=== PATIENT | female | born 1970 | race Caucasian/White ===

== ENCOUNTER 2018-08-16 19:48 | Emergency (ER) | payer SELFPAY ==
[~2018-08-16] VITALS: Ht 170.2 cm; Wt 57.2 kg
[2018-08-16] MEDS: IV NORMAL SALINE 1000ML BAG 1,000 ML IV ONE (20:17)
[2018-08-16] MEDS: ONDANSETRON PF 4 MG/2 ML VIAL. IV ONE (20:18)
[2018-08-16] MEDS: fentaNYL PF VIAL 100 MCG/2 ML VIAL IV ONE ×2 (20:18→21:39)
[2018-08-16] MEDS: KETAMINE HCL IN NACL, ISO-OSM 50 MG/5 ML SYRINGE IV ONE (20:21)
--- NOTE | 2018-08-16 20:31 | PHYS DOC ---
MODERATE SEDATION ASSESSMENT RISKS/ALTERNATIVES Risks/Alternatives Risks and alternatives of this type of sedation and procedure discussed with: RISK/ALTERNATIVES: Patient H & P ON CHART H & P H & P on chart and reviewed for co-morbid conditions and appropriate labs. H&P ON CHART: Yes STATUS PREG STATUS ASSESSED: Yes MEDS/ALLERGIES REVIEWED Meds/Allergies Reviewed Medications and Allergies including time and route of recently administered narcotics and sedatives. MEDS/ALLERGIES REVIEWED: Yes ASA RATING ASA RATING: II AIRWAY ASSESSMENT Airway Assessment Airway patency, oral function limitations, presence of caps, crowns, dentures, partials, and ability to extend neck assessed. AIRWAY ASSESSMENT: Yes MALLAMPATI SCORE MALLAMPATI SCORE: I PRE-SEDATION ASSESSMENT PRE-SEDATION ASSESSMENT: Yes OMID HERNÁNDEZ MD Aug 16, 2018 20:31
--- NOTE | 2018-08-16 20:32 | PHYS DOC ---
Adult General Chief Complaint Chief Complaint: WRIST PAIN HPI HPI Patient is a 48 year ol female brought in by after a 5 foot fall off a ladder. She landed directly on her left wrist no other injury denies any head injury or neck pain no chest pain no abdominal pain pain is severe left wrist nonradiating has not tried anything for relief Patient is right-handed she denies previous past medical history she does drink alcohol denies drugs d Review of Systems Review of Systems Constitutional: Denies fever or chills [] Musculoskeletal: Denies back pain or joint pain [] Integument: Denies rash or skin lesions [] All other systems were reviewed and found to be within normal limits, except as documented in this note. Current Medications Current Medications Current Medications Medications (Trade) Dose Ordered Sig/John Start Time Stop Time Status Last Admin Dose Admin Acetaminophen/ Hydrocodone Bitart (Lortab 5/325) 2 tab 1X ONCE 08/16/18 23:30 08/16/18 23:30 DC 08/16/18 23:00 2 TAB Fentanyl Citrate (Fentanyl 2ml Vial) 50 mcg 1X ONCE 08/16/18 22:15 08/16/18 22:16 DC 08/16/18 21:39 50 MCG Hydromorphone HCl (Dilaudid) 1 mg 1X ONCE 08/16/18 20:15 08/16/18 20:16 DC 08/16/18 20:39 1 MG Ketamine HCl (Ketamine) 20 mg 1X ONCE 08/16/18 20:00 08/16/18 20:05 DC 08/16/18 20:21 20 MG Lidocaine HCl 20 ml 1X ONCE 08/16/18 20:00 08/16/18 20:01 DC 08/16/18 21:39 20 ML Ondansetron HCl (Zofran) 4 mg 1X ONCE 08/16/18 20:00 08/16/18 20:05 DC 08/16/18 20:18 4 MG Propofol (Diprivan) 200 mg 1X ONCE 08/16/18 20:30 08/16/18 20:45 DC 08/16/18 21:38 200 MG Sodium Chloride 1,000 ml @ 1,000 mls/hr 1X ONCE 08/16/18 20:00 08/16/18 20:59 DC 08/16/18 20:17 1,000 MLS/HR Allergies Allergies Allergies Coded Allergies Type Severity Reaction Last Updated Verified No Known Drug Allergies 08/16/18 No Physical Exam Physical Exam Constitutional: Well developed, well nourished, no acute distress, non-toxic appearance. [] HENT: Normocephalic, atraumatic, bilateral external ears normal, oropharynx moist, no oral exudates, nose normal. [] Eyes: PERRLA, EOMI, conjunctiva normal, no discharge. [] Neck: Normal range of motion, no tenderness, supple, no stridor. [] Cardiovascular:Heart rate regular rhythm, no murmur [] Lungs & Thorax: Bilateral breath sounds clear to auscultation [] Abdomen: Bowel sounds normal, soft, no tenderness, no masses, no pulsatile masses. [] Skin: Warm, dry, no erythema, no rash. [] Back: No tenderness, no CVA tenderness. [] Extremities: Left wrist deformed radial pulses present sensation is intact distally Neurologic: Alert and oriented X 3, normal motor function, normal sensory function, no focal deficits noted. [] Psychologic: Very anxious overall. Current Patient Data Vital Signs Vital Signs Date Time Temp Pulse Resp B/P (MAP) Pulse Ox O2 Delivery O2 Flow Rate FiO2 08/16/18 22:30 77 16 133/84 (100) 100 Room Air 08/16/18 21:36 98.2 2.0 98.0 2.0 EKG EKG [] Radiology/Procedures Radiology/Procedures []Just after my read negative acute Impressions: Wrist x-ray #1 significantly displaced and shortened distal radius fracture. Wrist x-ray #2 actually fairly improved alignment still mildly displaced but better Course & Med Decision Making Course & Med Decision Making Pertinent Labs and Imaging studies reviewed. (See chart for details) []Discussed with Dr. victoria who agrees with emergency room reduction followed by outpatient follow-up in his clinic he prefers several days of decreased swelling etc. prior to operative evaluation due to better healing etc. Conscious sedation note: Informed consent was obtained timeout was performed total sedation time was 9 minutes given a total of 90 mg of propofol we gave 70 mg of propofol followed by another small 20 mg bolus. Patient had transient apnea approximately 20-30 seconds we bagged her a few times only and she came right out of it. Patient was observed very closely was on nasal cannula oxygenation bus monitor as well as end-tidal CO2 throughout. Closed reduction note: Informed consent was obtained to confirm the side with the patient. After the administration of propofol as well as a hematoma block hematoma block was 2% lidocaine plain 8 mL's under sterile conditions following those 2 pre-medications I performed a usual closed reduction with manual traction we placed a sugar tong splint I was there for this. I actually checked the splint again after she woke up she said it was a little tight I readjusted that a small amount and that helped a lot. He was in good position. Patient will be discharged to follow-up with orthopedics in a timely fashion pain control was provided she felt much better after the above treatment Dragon Disclaimer Dragon Disclaimer This electronic medical record was generated, in whole or in part, using a voice recognition dictation system. Departure Departure Impression: Primary Impression: Distal radius fracture Disposition: 01 HOME, SELF-CARE Condition: IMPROVED Scripts Ondansetron Hcl (ZOFRAN) 4 Mg Tablet 4 MG PO PRN TID PRN for NAUSEA/VOMITING, #15 nausea/vomiting Prov: OMID HERNÁNDEZ MD 08/16/18 Oxycodone/Apap 5-325 (PERCOCET 5-325 MG TABLET ) 1 Each Tablet 1-2 EACH PO PRN TID PRN for PAIN, #25 TAB pain Prov: OMID HERNÁNDEZ MD 08/16/18 OMID HERNÁNDEZ MD Aug 16, 2018 20:32
[2018-08-16] MEDS ORDERED: OXYC1TAB15 PO (20:33)
[2018-08-16] MEDS ORDERED: ONDA4TAB7 PO (20:33)
[2018-08-16] MEDS: HYDROmorphone 2 MG/ML VIAL IV ONE (20:39)
[2018-08-16 21:36] VITALS: BP 165/88
[2018-08-16] MEDS: PROPOFOL 10 MG/ML (20ML) VIAL. IV ONE (21:38)
[2018-08-16] MEDS: LIDOCAINE 2% 20 ML VIAL. IJ ONE (21:39)
[2018-08-16 22:30] VITALS: BP 133/84
[2018-08-16] MEDS: HYDROcodone/APAP 5/325MG 1 TAB TABLET PO ONE (23:00)
--- NOTE | 2018-08-17 03:40 | RAD ---
Chest radiograph 08/16/2018 7:58 PM INDICATION: Trauma COMPARISON: None available TECHNIQUE: Portable frontal semi-upright view of the chest is provided. FINDINGS: The cardiomediastinal silhouette is within normal limits. There are no pleural effusions. There is no pulmonary vascular congestion. There is no pneumothorax. The lungs are clear. No significant osseous abnormality is identified. Bilateral breast prosthesis noted. IMPRESSION: No acute cardiopulmonary process. Electronically signed by: Meghann Cervantes MD (08/17/2018 3:37 AM) [facility]
--- NOTE | 2018-08-17 05:52 | RAD ---
WRIST 3V LEFT 08/16/2018 7:50 PM INDICATION: Trauma COMPARISON: None available. TECHNIQUE: 3 views of the left wrist are provided. Findings/ impression: 1. Comminuted fractures involving the distal radial metadiaphysis with one shaft width displacement, intra-articular extension and apex volar angulation. 2. Scaphoid is intact. There is no perilunate dislocation. 3. There may be a nondisplaced ulnar styloid process fracture. There is possible disruption of the distal radioulnar joint. Electronically signed by: Meghann Cervantes MD (08/17/2018 5:49 AM) [facility]
--- NOTE | 2018-08-17 05:53 | RAD ---
WRIST 3V LEFT 08/16/2018 9:48 PM INDICATION: Postreduction COMPARISON: Left wrist radiograph August 16, 2018 TECHNIQUE: 3 views the left wrist are provided. Findings/ impression: Interval closed reduction with improved alignment of fracture fragments involving the distal radius. Radiocarpal joint extension of fracture lines are noted. Electronically signed by: Meghann Cervantes MD (08/17/2018 5:50 AM) [facility]
== END 2018-08-16 23:01 | disposition home or self-care (01) ==
LOC: ER 19:48
DX: S52.572A Other intraarticular fracture of lower end of left radius, initial encounter for closed fracture (principal); W11.XXXA Fall on and from ladder, initial encounter; Y93.89 Activity, other specified; Y92.89 Other specified places as the place of occurrence of the external cause; Y99.8 Other external cause status
CPT/HCPCS: 25605; 71045; 73110; 96374; 99285; J1170; J2001; J2405; J2704; J3010; J7030

== ENCOUNTER 2021-07-09 07:19 | Emergency (ER) | payer OTHER ==
[~2021-07-09] VITALS: Ht 170.2 cm; Wt 62.7 kg
[~2021-07-09 07:19] MED LIST: ONDA4TAB7 PO; OXYC1TAB15 PO
[2021-07-09] MEDS ORDERED: IV NORMAL SALINE 1000ML BAG 1,000 ML IV SCH (07:45)
[2021-07-09] MEDS ORDERED: SULF1TAB24 PO (07:49)
[2021-07-09] MEDS ORDERED: TETANUS AND DIPHTHERIA TOX/PF 0.5 ML DISP.SYRIN. VAX IM ONE (08:00)
[2021-07-09] MEDS ORDERED: LIDOCAINE 1%/EPI 1:100,000 20 ML VIAL. INJ ONE (08:00)
[2021-07-09] MEDS ORDERED: KETOROLAC 30 MG/ML VIAL. IM ONE (08:00)
--- NOTE | 2021-07-09 08:02 | PHYS DOC ---
Past Medical History Past Medical History: Anemia Past Surgical History: Appendectomy, , Hysterectomy Smoking Status: Former Smoker Additional Information: QUIT SMOKING 1 YEAR AGO Alcohol Use: Occasionally Drug Use: None General Adult EDM: Chief Complaint: SKIN PROBLEM HPI: HPI: Patient is a 51 year old female who presents with abscess on bellybutton. Patient states that it has been developing over the last several days. She states that she wore her daughters high waisted shorts which caused friction around her bellybutton, she believes that this is how the infection started. She has a little bit of surrounding erythema around the abscess. She has not had any drainage. No fevers, no chills, no other systemic symptoms. No abdominal pain, only pain at the site of the abscess. Review of Systems: Review of Systems: Constitutional: Denies fever or chills. [] Eyes: Denies change in visual acuity. [] HENT: Denies nasal congestion or sore throat. [] Respiratory: Denies cough or shortness of breath. [] Cardiovascular: Denies chest pain or edema. [] GI: Denies abdominal pain, nausea, vomiting, bloody stools or diarrhea. [] : Denies dysuria. [] Musculoskeletal: Denies back pain or joint pain. [] Integument: Positive rash. [] Neurologic: Denies headache, focal weakness or sensory changes. [] Endocrine: Denies polyuria or polydipsia. [] Lymphatic: Denies swollen glands. [] Psychiatric: Denies depression or anxiety. [] Heart Score: C/O Chest Pain: No Risk Factors: Risk Factors: DM, Current or recent (<one month) smoker, HTN, HLP, family history of CAD, obesity. Risk Scores: Score 0 - 3: 2.5% MACE over next 6 weeks - Discharge Home Score 4 - 6: 20.3% MACE over next 6 weeks - Admit for Clinical Observation Score 7 - 10: 72.7% MACE over next 6 weeks - Early Invasive Strategies Current Medications: Current Medications Medications (Trade) Dose Ordered Sig/John Start Time Stop Time Status Last Admin Dose Admin Ketorolac Tromethamine (Toradol 30mg Vial) 30 mg 1X ONCE 07/09/21 08:00 07/09/21 08:01 UNV Sodium Chloride 1,000 ml @ 1,000 mls/hr Q1H 07/09/21 07:45 07/09/21 07:46 DC Tetanus/ Diphtheria Toxoids (Tenivac Syringe) 0.5 ml ONCE ONCE 07/09/21 08:00 07/09/21 08:01 UNV Allergies: Allergies: Allergies Coded Allergies Type Severity Reaction Last Updated Verified No Known Drug Allergies 07/09/21 No Physical Exam: PE: Constitutional: Well developed, well nourished, no acute distress, non-toxic appearance. [] HENT: Normocephalic, atraumatic, bilateral external ears normal, oropharynx moist, no oral exudates, nose normal. [] Eyes: PERRLA, EOMI, conjunctiva normal, no discharge. [] Neck: Normal range of motion, no tenderness, supple, no stridor. [] Cardiovascular:Heart rate regular rhythm, no murmur [] Lungs & Thorax: Bilateral breath sounds clear to auscultation [] Abdomen: Bowel sounds normal, soft, no tenderness, no masses, no pulsatile masses. [] Skin: Warm, dry, no erythema, abscess noted on left navel about 2.5 cm, positive fluctuance. [] Back: No tenderness, no CVA tenderness. [] Extremities: No tenderness, no cyanosis, no clubbing, ROM intact, no edema. [] Neurologic: Alert and oriented X 3, normal motor function, normal sensory function, no focal deficits noted. [] Psychologic: Affect normal, judgement normal, mood normal. [] Current Patient Data: Vital Signs: Vital Signs Date Time Temp Pulse Resp B/P (MAP) Pulse Ox O2 Delivery O2 Flow Rate FiO2 07/09/21 07:32 98.2 89 16 154/72 (99) 98 Room Air 98.2 EKG: EKG: [] Radiology/Procedures: Radiology/Procedures: Incision and drainage performed in normal sterile fashion. The site was cleaned and draped with chlorhexidine solution. The site was anesthetized with 4 mL of 1% lidocaine with epinephrine. Abscess was drained with an 11 blade. Copious amounts of purulent fluid was extracted. No packing was left. Patient was instructed to leave the site open. Patient tolerated the procedure well. No complications. Blood loss was scant. [] Impression: Skin abscess Course & Med Decision Making: Course & Med Decision Making Pertinent Labs and Imaging studies reviewed. (See chart for details) 51-year-old female presents with skin abscess. The abscess was drained, see above for procedure details. Patient was given a prescription for Bactrim, she was instructed to follow-up with her primary care physician for a wound check in 1 week. Patient tolerated the procedure well and had much relief after procedure was finished. Patient was discharged in stable and good condition. Patient agreed with discharge plan and instructions. All questions answered. Dragon Disclaimer: Dragon Disclaimer: This electronic medical record was generated, in whole or in part, using a voice recognition dictation system. Departure Departure Impression: Primary Impression: Abscess Disposition: HOME / SELF CARE / HOMELESS Condition: GOOD Patient Instructions: Abscess, Care After Additional Instructions: Follow-up with your primary care physician in 1 week for a wound recheck Take all of the antibiotics prescribed Return to the emergency department if you are experiencing worsening symptoms. Scripts Sulfamethoxazole/Trimethoprim (BACTRIM DS TABLET) 1 Each Tablet 1 TAB PO BID, #14 TAB Prov: NELL VALLEJO MD 07/09/21 NELL VALLEJO MD July 09, 2021 08:02
[2021-07-09] MEDS ORDERED: DIPHTH,PERTUSS(ACELL),TET TOX 0.5 ML DISP.SYRIN. VAX IM ONE (08:15)
[2021-07-09 09:00] VITALS: BP 127/80
== END 2021-07-09 09:15 | disposition home or self-care (01) ==
LOC: ER 07:19
DX: L02.216 Cutaneous abscess of umbilicus (principal); Z87.891 Personal history of nicotine dependence
CPT/HCPCS: 10060; 90471; 90715; 96372; 99284; J1885; J3490